=== PATIENT | female | born 1985 | race Hispanic/Latino ===

== ENCOUNTER → 2024-03-20 | Outpatient (CLI) | payer BC ==
[2024-03-20 09:55] LABS: BASOPHILS # (AUTO) 0.03 K/uL (0.00-0.20); BASOPHILS % (AUTO) 0.3 % (0.0-5.0); EOSINOPHILS # (AUTO) 0.16 K/uL (0.00-0.70); EOSINOPHILS % (AUTO) 1.8 % (0.0-8.0); HEMATOCRIT 44.6 % (36-48); IMMATURE GRANULOCYTE ABSOLUTE 0.03 K/uL (0-1); LYMPHOCYTES # (AUTO) 2.8 K/uL (1.0-4.8); LYMPHOCYTES % (AUTO) 30.9 % (21.0-51.0); MEAN CORPUSCULAR HEMOGLOBIN 28.1 pg (27.0-33.0); MEAN CORPUSCULAR HGB CONC 32.3 g/dL (32.0-36.0); MEAN CORPUSCULAR VOLUME 87.1 fL (79-99); MONOCYTES # (AUTO) 0.5 K/uL (0.1-1.0); MONOCYTES % (AUTO) 5.6 % (3.0-13.0); NEUTROPHILS # (AUTO) 5.6 K/uL (1.8-7.7); NEUTROPHILS % (AUTO) 61.1 % (40.0-77.0); PLATELET COUNT (AUTO) 271 K/uL (130-400); RED BLOOD CELL COUNT(AUTO) 5.12 MIL/uL (4.00-5.50); RED CELL DISTRIBUTION WIDTH 13.1 % (11.0-15.5); WHITE BLOOD COUNT (AUTO) 9.1 K/uL (4.8-10.8)
[2024-03-20 10:34] LABS: ALBUMIN 3.6 g/dL (3.5-5.0); BILIRUBIN,TOTAL 0.4 mg/dL (0.2-1.0); CREATININE 0.6 mg/dL (0.5-1.0); MAGNESIUM 1.8 mg/dL (1.80-2.40); POTASSIUM 4.1 mmol/L (3.5-5.1); T4 (THYROXINE) 9.2 ug/dL (4.7-13.3)
[2024-03-20 10:35] LABS: HEMOGLOBIN A1C 6.1 % (4.0-6.0)
[2024-03-21 12:13] LABS: INSULIN, RANDOM OR FASTING 37.9 uIU/mL (2.6-24.9)
== END | disposition home or self-care (01) ==
LOC: LAB 08:16
PROVIDERS: ATTEND Surgery
DX: Z01.818 Encounter for other preprocedural examination (principal); J84.9 Interstitial pulmonary disease, unspecified; I10 Essential (primary) hypertension; G47.33 Obstructive sleep apnea (adult) (pediatric); M19.91 Primary osteoarthritis, unspecified site; E78.00 Pure hypercholesterolemia, unspecified; K76.0 Fatty (change of) liver, not elsewhere classified; K21.9 Gastro-esophageal reflux disease without esophagitis; Z79.899 Other long term (current) drug therapy
CPT/HCPCS: 36415; 71045; 80053; 80061; 82306; 82607; 82746; 83036; 83525; 83540; 83735; 84207; 84425; 84436; 84443; 84446; 84481; 84590; 84630; 85025; 93005

== ENCOUNTER → 2024-04-04 | Outpatient (CLI) | payer OTHER | END | disposition home or self-care (01) | LOC: RAH 11:17 | PROVIDERS: ATTEND Internal Medicine Cardiovascular Disease | DX: Z13.6 Encounter for screening for cardiovascular disorders (principal) | CPT/HCPCS: 75571 ==

== ENCOUNTER → 2024-04-10 | Outpatient (CLI) | payer OTHER | END | disposition home or self-care (01) | LOC: EDBD → DTH 07:32 → EDUNIT# 08:00 | PROVIDERS: ATTEND Surgery | DX: E66.01 Morbid (severe) obesity due to excess calories (principal); G47.33 Obstructive sleep apnea (adult) (pediatric); M19.90 Unspecified osteoarthritis, unspecified site; I10 Essential (primary) hypertension; K21.9 Gastro-esophageal reflux disease without esophagitis; K76.0 Fatty (change of) liver, not elsewhere classified; E78.00 Pure hypercholesterolemia, unspecified; Z68.44 Body mass index [BMI] 60.0-69.9, adult; Z71.3 Dietary counseling and surveillance | CPT/HCPCS: 97803 ==

== ENCOUNTER 2024-04-17 06:31 | Day surgery (SDC) | payer BC ==
[~2024-04-17] VITALS: Ht 160 cm; Wt 170.1 kg
[2024-04-17] VITALS (10 sets, daily range): BP systolic 133–168; BP diastolic 75–103; PULSE 73–100; RESP 12–20; TEMP 97.6–98.8
[2024-04-17] MEDS: 0.9%NACL 1000ML 1,000 ML IV ONE (07:01)
[2024-04-17] MEDS ORDERED: ketaMINE 50MG/ML SYRINGE 50 MG/ML DISP.SYRIN ONE (07:40)
[2024-04-17] MEDS ORDERED: proPOFol 10 MG/ML 20ML VIAL IV ONE (07:40)
[2024-04-17] MEDS ORDERED: MIDAZOLAM HCL 1 MG/ML 2ML VIAL ONE (07:50)
[2024-04-17] MEDS: metoPROLOL tartRATE 1 MG/ML 5ML VIAL IV ONE (08:18)
== END 2024-04-17 08:59 | disposition home or self-care (01) ==
LOC: DAH 06:31 → ENDO 06:31
PROVIDERS: ATTEND Internal Medicine Gastroenterology
DX: K21.00 Gastro-esophageal reflux disease with esophagitis, without bleeding (principal); K22.89 Other specified disease of esophagus; K31.89 Other diseases of stomach and duodenum; I10 Essential (primary) hypertension; F41.9 Anxiety disorder, unspecified; E66.01 Morbid (severe) obesity due to excess calories; F32.A Depression, unspecified; E11.8 Type 2 diabetes mellitus with unspecified complications; E78.00 Pure hypercholesterolemia, unspecified; E28.2 Polycystic ovarian syndrome; Z79.84 Long term (current) use of oral hypoglycemic drugs; Z79.899 Other long term (current) drug therapy; Z72.89 Other problems related to lifestyle; Z80.0 Family history of malignant neoplasm of digestive organs; Z98.84 Bariatric surgery status; Z68.44 Body mass index [BMI] 60.0-69.9, adult; Z98.890 Other specified postprocedural states
CPT/HCPCS: 43239; 82948; 81025; J3490 ×2; J7030 ×2; J2250; J2704; A4620; A4215 ×2; A4223; A4222; A4221; A4663; A4606

== ENCOUNTER 2024-06-20 05:54 | Observation (INO) | payer BC ==
[2024-06-19 10:09] VITALS: BP 158/84; PULSE 93; RESP 20; TEMP 98.2
[2024-06-19 10:15] LABS: BASOPHILS # (AUTO) 0.04 K/uL (0.00-0.20); BASOPHILS % (AUTO) 0.5 % (0.0-5.0); EOSINOPHILS # (AUTO) 0.14 K/uL (0.00-0.70); EOSINOPHILS % (AUTO) 1.6 % (0.0-8.0); HEMATOCRIT 46.5 % (36-48); IMMATURE GRANULOCYTE ABSOLUTE 0.04 K/uL (0-1); LYMPHOCYTES % (AUTO) 22.3 % (21.0-51.0); MEAN CORPUSCULAR HEMOGLOBIN 28.8 pg (27.0-33.0); MEAN CORPUSCULAR HGB CONC 32.5 g/dL (32.0-36.0); MEAN CORPUSCULAR VOLUME 88.6 fL (79-99); MONOCYTES # (AUTO) 0.5 K/uL (0.1-1.0); MONOCYTES % (AUTO) 6.1 % (3.0-13.0); NEUTROPHILS # (AUTO) 6.1 K/uL (1.8-7.7); PLATELET COUNT (AUTO) 246 K/uL (130-400); RED BLOOD CELL COUNT(AUTO) 5.25 MIL/uL (4.00-5.50); RED CELL DISTRIBUTION WIDTH 12.9 % (11.0-15.5); WHITE BLOOD COUNT (AUTO) 8.8 K/uL (4.8-10.8)
[2024-06-19 10:32] LABS: ALBUMIN 3.9 g/dL (3.5-5.0); BILIRUBIN,TOTAL 0.6 mg/dL (0.2-1.0); CREATININE 0.7 mg/dL (0.5-1.0); POTASSIUM 3.8 mmol/L (3.5-5.1); TOTAL PROTEIN, SERUM 8.3 g/dL (6.0-8.3)
--- NOTE | 2024-06-19 11:00 | EKG ---
[facility] Test Date: 2024-06-19 Test Time: 10:01:48 Pat Name: STORM TURCIOS Department: [facility] Room: Gender: F Director Outpatient Services: [id number] : 1985 Requested By: SOHAM LYONS Order Number: [id number] Reading MD: Soham Henry Measurements Intervals [place] Rate: 71 P: 20 AK: 145 QRS: -24 QRSD: 94 T: 14 QT: 379 QTc: 412 Interpretive Statements Sinus rhythm LVH BY VOLTAGE Electronically Signed On 06-19-2024 12:05:56 CDT by Soham Henry Please click the below link to view image of tracing.
[2024-06-20] VITALS (26 sets, daily range): BP systolic 118–166; BP diastolic 68–98; PULSE 68–115; RESP 15–20; TEMP 97.4–100.3; O2SAT 98
[~2024-06-20] VITALS: Ht 160 cm; Wt 163.5 kg
[2024-06-20 06:53] LABS: INR 1.12 (0.85-1.15)
[2024-06-20 06:54] LABS: PARTIAL THROMBOPLASTIN TIME 32.1 SEC (26.3-35.5)
[2024-06-20] MEDS ORDERED: dexaMETHasone SOD PHOSPHATE 10MG/ML 1ML VIAL ONE (07:06)
[2024-06-20] MEDS ORDERED: LIDOCAINE PF 100MG/5ML (2%) SYRINGE 5ML ONE (07:06)
[2024-06-20] MEDS: metRONIDazole 500MG/100ML BAG 100 ML ONE (07:06)
[2024-06-20] MEDS ORDERED: ondanSETRON 4MG INJ ONE (07:07)
[2024-06-20] MEDS ORDERED: proPOFol 10 MG/ML 20ML VIAL IV ONE (07:07)
[2024-06-20] MEDS ORDERED: SUCCINYLCHOLINE CHLORIDE 20 MG/ML 10 ML VIAL ONE (07:07)
[2024-06-20] MEDS ORDERED: GLYCOPYRROLATE 0.2 MG/ML 5 ML VIAL ONE (07:07)
[2024-06-20] MEDS ORDERED: MIDAZOLAM HCL 1 MG/ML 2ML VIAL ONE (07:07)
[2024-06-20] MEDS ORDERED: rocuRONium bROMide 10MG/1ML 5ML VL ONE ×2 (07:07→08:46)
[2024-06-20] MEDS ORDERED: NEOSTIGMINE METHYLSULFATE 1MG/ML IV ONE (07:07)
[2024-06-20] MEDS ORDERED: FENTanyl CITRate PF 50 MCG/1 ML 2ML VIAL ONE ×3 (07:08→10:04)
[2024-06-20] MEDS: 0.9%NACL 1000ML 1,000 ML IV ONE (07:12)
[2024-06-20] MEDS: ceFAZolin SODIUM 2 GM VIAL ONE (07:12)
[2024-06-20] MEDS: metRONIDazole 500MG/100ML BAG 200 ML ONE (07:12)
[2024-06-20] MEDS ORDERED: phenylEPHRINE HCL 10 MG/ML 1ML VIAL IV ONE (07:13)
[2024-06-20] MEDS ORDERED: BUPIvacaine/PF 0.25% 30ML VIAL IJ ONE (07:22)
[2024-06-20] MEDS: ceFAZolin SODIUM 2 GM VIAL IVPB ONE (08:36)
--- NOTE | 2024-06-20 10:38 | OP ---
Operative Note: DATE OF PROCEDURE: 06/20/24 SURGEON: SOHAM LYONS MD SPICE MILLER: Gab Lyons MD p.a. C ANESTHESIA: General and local ANESTHESIOLOGIST/FIBERGLASS TECHNICIAN: [facility] anesthesia team PREOPERATIVE DIAGNOSIS: Morbid obesity and associated comorbid conditions POSTOPERATIVE DIAGNOSIS: As above SYNOPSIS: Hansel-en-Y gastric bypass performed without incident PROCEDURE: 1. Robotic assisted Hansel-en-Y gastric bypass greater than 150 cm 2. Omental patch to reinforced gastrojejunal anastomosis 3. EGD ESTIMATED BLOOD LOSS: Minimal, less than 30 cc INDICATIONS: As above DESCRIPTION OF PROCEDURE: After standard precautions and preparations were undertaken a Veress needle and optical trocar were used to enter the abdominal cavity. All other instruments were placed under direct vision. The robotic system was docked in the standard fashion. We began our dissection by first ensuring that the small bowel would reach up to the area of the proposed gastric pouch which it did so we proceeded with the remainder of the case. We created a gastric pouch by creating a window between the neurovascular bundle along the lesser curve of the stomach and the gastric wall. We entered the lesser sac. A linear stapler with staple line reinforcement was used to create a curvilinear staple line from the lesser curve upwards towards the angle of his. With the pouch created in from the remnant stomach we moved down to the ligament of Treitz and identified the proximal jejunum. We counted distally between 75 and 100 cm to an area along the small bowel that could reach up to the pouch with a minimal tension. The small bowel loop was sutured to the pouch in anticipation of the future stapled anastomosis. The loop was divided using a linear stapler. This created a cut edge of the Hansel limb and a distal cut edge of the biliopancreatic limb. The Hansel limb was counted down approximately 150 cm and mated to the cut edge of the biliopancreatic limb in anticipation of future stapled anastomosis. This gave a total bypass length of approximately 225-250 cm. For the gastrojejunal anastomosis a gastrotomy and enterotomy were created and a linear stapler was used to create an anastomosis. The defect was sutured closed. An omental patch was sutured in place to reinforced the closure. For the jejunal jejunostomy two enterotomies were created and a linear stapler w as used to create an anastomosis. The defect was sewn closed. Permanent suture was used to close the mesenteric defect between the jejunal jejunostomy limbs of intestine as well as the pseudo Ayala space between the transverse colon mesentery and the mesentery of the ante-colic Hansel limb. Throughout the case my partner utilize the EGD scope to verify appropriate anatomic landmarks and at the end of the case to perform a leak test. We insufflated under fluid with no signs of leak or problem. The anastomosis was widely patent at the gastrojejunal anastomosis and we are able to insufflate air down to the jejunal jejunojejunostomy which also demonstrated patency. Prior to ending the case all instrument counts were verified as correct including needles and sponges. SOHAM LYONS MD Jun 20, 2024 10:38
[2024-06-20] MEDS: MEPERIDINE-PF 25 MG/ML SYG ONE ×2 (10:58→11:06)
[2024-06-20] MEDS ORDERED: PROCHLORPERAZINE 10MG/2ML INJ IV PRN (11:00)
[2024-06-20] MEDS: ENOXAPARIN SODIUM 60 MG/0.6 ML SQ SCH (11:57)
[2024-06-20] MEDS: LACTATED RINGERS 1000ML 1,000 ML IV SCH (12:02)
[2024-06-20] MEDS: SUGAMMADEX SODIUM 200 MG/2 ML VIAL IV ONE (12:03)
[2024-06-20] MEDS: ondanSETRON 4MG INJ IVP PRN (12:13)
[2024-06-20] MEDS: HYDROcod/acetaMINOPHEN 7.5/325 MG 15 ML UDCUP PO PRN (13:32)
[2024-06-20] MEDS: ketOROlac 30MG VIAL (30MG/ML) IV PRN (13:35)
--- NOTE | 2024-06-20 13:46 | PN ---
GENERAL SURGERY PROGRESS NOTE Date/Time Patient Seen: [06/20/2024 1:00 p.m. ] Problem List: [ ] Interval History: [ Postop day 0. Pain tolerable with p.r.n. medication.] Current Medications Medications (Trade) Dose Ordered Sig/Florencio Route Start Time Stop Time Status Last Admin Dose Admin Enoxaparin Sodium (Lovenox 60mg) 60 mg Q12H SQ 06/20/24 11:00 07/20/24 10:59 06/20/24 11:57 60 MG Famotidine (Pepcid 20mg Vial) 20 mg BID IV 06/20/24 21:00 07/20/24 20:59 Lactated Ringer's 1,000 ml @ 150 mls/hr Q6H40M IV 06/20/24 11:00 07/20/24 10:59 06/20/24 12:02 150 MLS/HR Physical Examination: ABD: Incisions clean, dry and intact, Dermabond in place Vital Signs (last 8hr) Date Time Temp Pulse Resp B/P (MAP) Pulse Ox O2 Delivery O2 Flow Rate FiO2 06/20/24 13:05 N/A Room Air 06/20/24 12:00 Room Air* 0 06/20/24 11:50 97.5 103 18 123/73 96 Room Air 06/20/24 11:45 97.3 106 20 139/78 98 Nasal Cannula 3.0 06/20/24 11:40 97.3 107 18 141/80 97 Nasal Cannula 3.0 06/20/24 11:35 97.3 102 20 119/68 98 Nasal Cannula 3.0 06/20/24 11:30 97.3 104 20 134/70 98 Nasal Cannula 3.0 06/20/24 11:25 97.3 108 20 140/70 98 Nasal Cannula 3.0 06/20/24 11:20 97.3 105 20 131/72 98 Nasal Cannula 3.0 06/20/24 11:15 97.3 104 17 137/77 98 Nasal Cannula 3.0 06/20/24 11:10 97.3 107 17 139/78 98 Nasal Cannula 3.0 06/20/24 11:05 97.3 110 17 132/84 97 Nasal Cannula 3.0 06/20/24 11:00 97.3 109 20 138/79 97 Nasal Cannula 3.0 28 06/20/24 10:55 97.3 107 20 153/79 100 Nonrebreathing Mask 10.0 100 06/20/24 10:50 97.3 109 19 151/82 98 Nonrebreathing Mask 10.0 100 06/20/24 10:50 97.3 108 15 143/74 98 Nonrebreathing Mask 10.0 100 06/20/24 10:45 97.3 115 15 138/74 98 Nonrebreathing Mask 10.0 100 06/20/24 07:00 97.9 100 17 133/84 97 Room Air 21 Laboratory: [ ] Hematology Labs: Test 06/19/24 09:40 Range/Units White Blood Count 8.8 4.8-10.8 K/uL Red Blood Count 5.25 4.00-5.50 MIL/uL Hemoglobin 15.1 12.0-16.0 g/dL Hematocrit 46.5 36-48 % Mean Corpuscular Volume 88.6 79-99 fL Mean Corpuscular Hemoglobin 28.8 27.0-33.0 pg Mean Corpuscular Hemoglobin Concent 32.5 32.0-36.0 g/dL Red Cell Distribution Width 12.9 11.0-15.5 % Platelet Count 246 130-400 K/uL Mean Platelet Volume 12.1 H 7.5-10.5 fL Immature Granulocyte % (Auto) 0.5 0-1 % Neutrophils (%) (Auto) 69.0 40.0-77.0 % Lymphocytes (%) (Auto) 22.3 21.0-51.0 % Monocytes (%) (Auto) 6.1 3.0-13.0 % Eosinophils (%) (Auto) 1.6 0.0-8.0 % Basophils (%) (Auto) 0.5 0.0-5.0 % Neutrophils # (Auto) 6.1 1.8-7.7 K/uL Lymphocytes # (Auto) 2.0 1.0-4.8 K/uL Monocytes # (Auto) 0.5 0.1-1.0 K/uL Eosinophils # (Auto) 0.14 0.00-0.70 K/uL Basophils # (Auto) 0.04 0.00-0.20 K/uL Absolute Immature Granulocyte (auto 0.04 0-1 K/uL Nucleated Red Blood Cells 0.0 0.0-0.19 % Chemistry Labs: Test 06/20/24 06:28 06/19/24 09:45 Range/Units Serum Test, Qualitative NEGATIVE NEGATIVE Sodium Level 131 L 136-145 mmol/L Potassium Level 3.8 3.5-5.1 mmol/L Chloride Level 101 101-111 mmol/L Carbon Dioxide Level 26 21-32 mmol/L Blood Urea Nitrogen 10 7-18 mg/dL Creatinine 0.7 0.5-1.0 mg/dL Glomerular Filtration Rate Calc 115 >90 mL/min Random Glucose 93 70-105 mg/dL Total Calcium 9.1 8.5-10.1 mg/dL Total Bilirubin 0.6 0.2-1.0 mg/dL Aspartate Amino Transf (AST/SGOT) 30 10-37 U/L Alanine Aminotransferase (ALT/SGPT) 51 12-78 U/L Alkaline Phosphatase 86 50-136 U/L Total Protein 8.3 6.0-8.3 g/dL Albumin 3.9 3.5-5.0 g/dL Coagulation Labs: Test 06/20/24 06:28 Range/Units Prothrombin Time 12.0 H 9.6-11.6 SEC Prothromb Time International Ratio 1.12 0.85-1.15 Activated Partial Thromboplast Time 32.1 26.3-35.5 SEC Diagnostics / Radiology: [Copy/Paste Echos/Imaging Report here] Impression and Plan: [As long as patient tolerating p.o. intake, ambulatory and pain under control- plan is for discharge home in the next day or two. ] EMILIANO LYONS Jun 20, 2024 13:46
[2024-06-20] MEDS: FAMOTIDINE 20MG VIAL IV SCH (19:47)
[2024-06-20] MEDS: hydroMORPHone 1 MG INJ IVP PRN (21:12)
[2024-06-21 04:10] VITALS: BP 148/67; PULSE 84; RESP 20; TEMP 98.4
--- NOTE | 2024-06-21 07:05 | PN ---
GENERAL SURGERY PROGRESS NOTE Date/Time Patient Seen: [June 21, 2024 0630 hours ] Problem List: [Morbid severe obesity and all associated comorbid conditions ] Interval History: [ The patient is a pleasant 38-year-old female status post Hansel-en-Y gastric bypass done by Dr. Surendra Butt. The patient is awake alert and oriented x3 and resting comfortably in bed. The patient is accompanied by spouse. The patient endorses pain that is tolerable with medication. The patient is tolerating a clear liquid diet well without signs of dysphagia, nausea or emesis. Reports one bout of nausea and emesis with broth. The patient has been ambulating, voiding freely. Reports passing flatus and burping. Patient denies any fever or chills. Abdominal incisions intact, clean and dry. Regular bowel sounds with the appropriate tenderness to palpation. Vital signs remained stable. Patient is clinically stable. We will continue to monitor patient. Patient is overall happy with the procedure and ready to go home today.] Current Medications Medications (Trade) Dose Ordered Sig/Florencio Route Start Time Stop Time Status Last Admin Dose Admin Enoxaparin Sodium (Lovenox 60mg) 60 mg Q12H SQ 06/20/24 11:00 07/20/24 10:59 06/20/24 23:27 60 MG Famotidine (Pepcid 20mg Vial) 20 mg BID IV 06/20/24 21:00 07/20/24 20:59 06/20/24 19:47 20 MG Lactated Ringer's 1,000 ml @ 150 mls/hr Q6H40M IV 06/20/24 11:00 07/20/24 10:59 06/21/24 03:01 150 MLS/HR Physical Examination: GENERAL: [No acute distress.] HEAD: [Normal with no signs of head trauma.] EYES: [PERRLA, EOMI, conjunctiva and sclera normal.] ENT: [Hearing grossly intact, normal oropharynx.] NECK: [Supple without JVD. There is no tenderness, lymphadenopathy, or masses. No thyromegaly. Normal carotid upstrokes without bruits.] LUNGS: [Clear breath sounds bilaterally. There are right basilar rales one third of the way up the chest. No wheezes, or rhonchi.] HEART: [Normal rate and rhythm. Normal S1 and S2 without mumurs, gallop or rub.] VASC: [Peripheral pulses +2 bilaterally.] ABD: [Bowel sounds normal, soft, nontender, no masses, no organomegaly. No audible bruits. Incisions are clean and dry and well approximated. Dermabond in place] : [Not examined] LYMPH: [No lymphadenopathy noted.] EXT: [No clubbing, cyanosis or edema.] SKIN: [No rashes or lesions noted.] NEURO: [Awake, alert, and oriented x3. No focal sensory or strength deficits noted.] Vital Signs (last 8hr) Date Time Temp Pulse Resp B/P (MAP) Pulse Ox O2 Delivery O2 Flow Rate FiO2 06/21/24 04:10 98.4 84 20 148/67 97 CPAP 06/20/24 23:40 100.2 92 18 153/93 98 Room Air Laboratory: [ ] Hematology Labs: Test 06/19/24 09:40 Range/Units White Blood Count 8.8 4.8-10.8 K/uL Red Blood Count 5.25 4.00-5.50 MIL/uL Hemoglobin 15.1 12.0-16.0 g/dL Hematocrit 46.5 36-48 % Mean Corpuscular Volume 88.6 79-99 fL Mean Corpuscular Hemoglobin 28.8 27.0-33.0 pg Mean Corpuscular Hemoglobin Concent 32.5 32.0-36.0 g/dL Red Cell Distribution Width 12.9 11.0-15.5 % Platelet Count 246 130-400 K/uL Mean Platelet Volume 12.1 H 7.5-10.5 fL Immature Granulocyte % (Auto) 0.5 0-1 % Neutrophils (%) (Auto) 69.0 40.0-77.0 % Lymphocytes (%) (Auto) 22.3 21.0-51.0 % Monocytes (%) (Auto) 6.1 3.0-13.0 % Eosinophils (%) (Auto) 1.6 0.0-8.0 % Basophils (%) (Auto) 0.5 0.0-5.0 % Neutrophils # (Auto) 6.1 1.8-7.7 K/uL Lymphocytes # (Auto) 2.0 1.0-4.8 K/uL Monocytes # (Auto) 0.5 0.1-1.0 K/uL Eosinophils # (Auto) 0.14 0.00-0.70 K/uL Basophils # (Auto) 0.04 0.00-0.20 K/uL Absolute Immature Granulocyte (auto 0.04 0-1 K/uL Nucleated Red Blood Cells 0.0 0.0-0.19 % Chemistry Labs: Test 06/20/24 06:28 06/19/24 09:45 Range/Units Serum Test, Qualitative NEGATIVE NEGATIVE Sodium Level 131 L 136-145 mmol/L Potassium Level 3.8 3.5-5.1 mmol/L Chloride Level 101 101-111 mmol/L Carbon Dioxide Level 26 21-32 mmol/L Blood Urea Nitrogen 10 7-18 mg/dL Creatinine 0.7 0.5-1.0 mg/dL Glomerular Filtration Rate Calc 115 >90 mL/min Random Glucose 93 70-105 mg/dL Total Calcium 9.1 8.5-10.1 mg/dL Total Bilirubin 0.6 0.2-1.0 mg/dL Aspartate Amino Transf (AST/SGOT) 30 10-37 U/L Alanine Aminotransferase (ALT/SGPT) 51 12-78 U/L Alkaline Phosphatase 86 50-136 U/L Total Protein 8.3 6.0-8.3 g/dL Albumin 3.9 3.5-5.0 g/dL Coagulation Labs: Test 06/20/24 06:28 Range/Units Prothrombin Time 12.0 H 9.6-11.6 SEC Prothromb Time International Ratio 1.12 0.85-1.15 Activated Partial Thromboplast Time 32.1 26.3-35.5 SEC Impression and Plan: [Postoperative day one. The patient is progressing well. We will continue to monitor and treat pain as needed. GI for/DVT prophylaxis recommended and encouraged. Patient may resume home medications. Patient may resume a full liquid diet. Continue ambulation and SCDs. Abdominal binder recommended. Incision care, hydration, activity and dietary restrictions discussed with the patient. The patient understands and agrees. The plan is to discharge the patient home today around noon. Postoperative follow-up appointment and postop medications sent by my office staff.] VASQUEZ TELLO Jun 21, 2024 07:05
[2024-06-21 08:00] VITALS: BP 154/88; PULSE 94; RESP 18; TEMP 98.4; O2SAT 98
[2024-06-21] MEDS: PROCHLORPERAZINE 10MG/2ML INJ IV PRN (08:41)
[2024-06-21] MEDS ORDERED: hydroMORPHone 0.5 MG SYG (0.5MG/0.5ML) IVP PRN (09:00)
[2024-06-21] MEDS ORDERED: ketOROlac 15MG/ML VIAL (15MG/ML) IV PRN (09:00)
[2024-06-21 11:37] VITALS: BP 143/78; PULSE 107; RESP 18; TEMP 98.1
== END 2024-06-21 15:27 | disposition home or self-care (01) ==
LOC: DAH 05:54 → 4BH 05:55 → UNDOADMIN 05:55 → DAHIP 05:55 → DAH 05:55 → EDSTATUS 17:00
PROVIDERS: ADMIT Surgery; ATTEND Surgery
DX: E66.01 Morbid (severe) obesity due to excess calories (principal); I10 Essential (primary) hypertension; E78.5 Hyperlipidemia, unspecified; K21.9 Gastro-esophageal reflux disease without esophagitis; K80.20 Calculus of gallbladder without cholecystitis without obstruction; F32.9 Major depressive disorder, single episode, unspecified; K80.80 Other cholelithiasis without obstruction; J45.909 Unspecified asthma, uncomplicated; M19.90 Unspecified osteoarthritis, unspecified site; E55.9 Vitamin D deficiency, unspecified; E28.2 Polycystic ovarian syndrome; R12 Heartburn; Z98.84 Bariatric surgery status; Z79.899 Other long term (current) drug therapy; Z98.890 Other specified postprocedural states; Z68.44 Body mass index [BMI] 60.0-69.9, adult
CPT/HCPCS: 80053; 85025; 86850; 86900; 86901; 93005; 43645; 96374; 96376 ×2; 96372 ×2; 96375 ×2; 84703; 85610; 85730; 36415 ×2; 94760; 97161; 97116; A6260; G0378 ×23; A4663; J7030 ×2; J7120; A4215 ×4; J3490 ×7; J3010 ×3; J1171; J1100; J0330; J0665 ×2; J2003; J2250; J2704; J2405 ×3; J1885 ×2; J2710; J1650 ×2; J2175 ×2; J2371; J0690 ×2; A4930; A4223 ×2; A4222; A4221; A4216; A4600; A4606; J0780; 43235; G8980-CI; G8983-CI